=== PATIENT | female | born 1995 ===

== ENCOUNTER 2017-10-21 17:53 | Inpatient (IN) | payer BC, MEDICARE, MEDICAID ==
[~2017-10-21] VITALS: Ht 157.5 cm; Wt 76.8 kg
[2017-10-31] VITALS (30 sets, daily range): BP systolic 92–137; BP diastolic 50–66; PULSE 54–102; TEMP 97.7–97.9
[2017-10-31] MEDS ORDERED: SYNTHROID0.05 MG/TA PO (07:31)
[2017-10-31] MEDS ORDERED: PRENATAL1 TA7 PO (07:31)
[2017-10-31 08:06] LABS: BASO % 0.4 % (0.0-2.0); EOS % 0.5 % (0-4.0); GRAN # 6.1 (1.4-6.5); GRAN % 73.3 % (42.2-75.2); LYMPH # 1.5 (1.2-3.4); LYMPH % 17.9 % (20.0-51.0); MEAN CELL VOLUME 92 fl (80.0-100.0); MEAN CORPUSCULAR HEMOGLOBIN 31 pg (27.0-31.0); MEAN CORPUSCULAR HGB CONC 34 g/dl (33.0-37.0); MEAN PLATELET VOLUME 13.3 fl (7.4-10.4); MONO # 0.6 (0.1-0.6); MONO % 7.3 % (1.7-9.3); PLATELET COUNT 134 K/mm3 (130-400); RED BLOOD COUNT 3.88 M/mm3 (4.10-5.30); REDCELL DISTRIBUTION WIDTH-CV 13.9 % (11.5-14.5)
[2017-10-31 08:07] LABS: HEMATOCRIT 35.7 % (37.0-47.0)
[2017-10-31 10:21] LABS: TRICYCLIC ANTIDEPRESS URINE NEGATIVE
[2017-11-01 08:00] VITALS: BP 97/62; PULSE 68; TEMP 97.9
[2017-11-01 16:00] VITALS: BP 108/80; PULSE 81; TEMP 97.6
[2017-11-01 19:50] VITALS: BP 108/59; PULSE 71; TEMP 98.6
[2017-11-02 06:45] VITALS: BP 100/72; PULSE 88; TEMP 98.1
[2017-11-02] MEDS ORDERED: MOTRIN 800800 MG/TAB PO (08:18)
== END 2017-11-02 10:30 | disposition home or self-care (01) | DRG 775 ==
LOC: LDR 10-31 07:12 → OB 10-31 07:12 → LDR 10-31 17:48 → OB 11-02 10:30
PROVIDERS: Obstetrics & Gynecology
PROC: 10D07Z6 Extraction of Products of Conception, Vacuum, Via Natural or Artificial Opening (ICD-10-PCS; principal; 2017-10-31)
PROC: 3E033VJ Introduction of Other Hormone into Peripheral Vein, Percutaneous Approach (ICD-10-PCS; 2017-10-31)
PROC: 0HQ9XZZ Repair Perineum Skin, External Approach (ICD-10-PCS; 2017-10-31)
DX: O48.0 Post-term pregnancy (principal); O99.284 Endocrine, nutritional and metabolic diseases complicating childbirth; E03.9 Hypothyroidism, unspecified; O76 Abnormality in fetal heart rate and rhythm complicating labor and delivery; O69.81X0 Labor and delivery complicated by cord around neck, without compression, not applicable or unspecified; O70.0 First degree perineal laceration during delivery; Z3A.40 40 weeks gestation of pregnancy; Z37.0 Single live birth
CPT/HCPCS: J2590; J7120